=== PATIENT | female | born 1935 | race Caucasian/White ===

== ENCOUNTER 2017-05-12 00:57 | Outpatient (CLI) | payer MEDICARE | END 2017-05-12 23:59 | disposition home or self-care (01) | LOC: DIABETIC 00:57 | PROVIDERS: ATTEND Specialist | DX: E11.65 Type 2 diabetes mellitus with hyperglycemia (principal) | CPT/HCPCS: G0108 ==

== ENCOUNTER 2017-05-27 04:23 | Outpatient (CLI) | payer MEDICARE | END 2017-05-27 23:59 | disposition home or self-care (01) | LOC: DIABETIC 04:23 | PROVIDERS: ATTEND Specialist | DX: E11.65 Type 2 diabetes mellitus with hyperglycemia (principal) | CPT/HCPCS: G0109 ==

== ENCOUNTER 2019-01-15 11:28 | Emergency (ER) | payer MEDICARE ==
[~2019-01-15] VITALS: Ht 162.6 cm; Wt 72.3 kg
[2019-01-15 12:27] LABS: BASOPHILS # (AUTO) 0.1 X10'3 (0-0.2); BASOPHILS % (AUTO) 1.3 % (0-1); EOSINOPHILS # (AUTO) 1.1 X10'3 (0-0.9); EOSINOPHILS % (AUTO) 12.4 % (0-6); HEMATOCRIT 39.4 % (35.0-45.0); HEMOGLOBIN 13.4 g/dl (12.0-16.0); LYMPHOCYTES # (AUTO) 2.2 X10'3 (1.1-4.8); LYMPHOCYTES % (AUTO) 24.8 % (21-51); MEAN CORPUSCULAR HEMOGLOBIN 30.2 PG (27.0-31.0); MEAN CORPUSCULAR HGB CONC 34.1 g/dL (33.0-36.5); MEAN CORPUSCULAR VOLUME 88.5 FL (78-98); MEAN PLATELET VOLUME 7.8 FL (7.4-10.4); MONOCYTES # (AUTO) 0.7 X10'3 (0-0.9); MONOCYTES % (AUTO) 7.8 % (2-12); NEUTROPHILS # (AUTO) 4.9 X10'3 (1.8-7.7); NEUTROPHILS % (AUTO) 53.7 % (42-75); PLATELET COUNT 377 X10'3 (140-440); RED BLOOD COUNT 4.46 X10'6 (4.20-5.60); RED CELL DISTRIBUTION WIDTH 13.9 % (11.5-14.5)
[2019-01-15] MEDS ORDERED: CefTRIAXone 1000mg IM Kit (w/lidocaine diluent) IM ONE (12:30)
[2019-01-15] MEDS ORDERED: TETanus/Pertussis (Acell)/Diphther VAC/PF (Tdap-Adult) 0.5ml syringe IM ONE (12:30)
[2019-01-15 12:39] LABS: PARTIAL THROMBOPLASTIN TIME 30 SECONDS (22-32)
[2019-01-15 12:43] LABS: ALANINE AMINOTRANSFERASE 18 U/L (12-78); ALBUMIN 4.3 G/DL (3.4-5.0); ALKALINE PHOSPHATASE 58 IU/L (46-116); ANION GAP 10 (8-16); ASPARTATE AMINO TRANSFERASE 14 U/L (10-37); BILIRUBIN,TOTAL 0.3 MG/DL (0.1-1.0); BLOOD UREA NITROGEN 29 MG/DL (7-18); BUN/CREATININE RATIO 22.5 (6.6-38.0); CHLORIDE 101 MMOL/L (99-107); CREATININE 1.29 MG/DL (0.40-0.90); GLUCOSE 110 MG/DL (70-104); POTASSIUM 4.7 MMOL/L (3.5-5.1); SODIUM 139 MMOL/L (135-145); TOTAL CARBON DIOXIDE 28.1 MMOL/L (24-32); TOTAL PROTEIN 8.6 G/DL (6.4-8.2); eGFR 39 ML/MIN
[2019-01-15] MEDS ORDERED: CEPH-572 PO (14:19)
[2019-01-15] MEDS ORDERED: SULF1TAB49 PO (14:19)
[2019-01-15 14:41] VITALS: BP 134/70
[2019-01-16] MEDS ORDERED: SULF1TAB49 PO (22:41)
[2019-01-16] MEDS ORDERED: CEPH-572 PO (22:41)
[2019-01-16] MEDS ORDERED: METF500T PO (22:53)
[2019-01-16] MEDS ORDERED: FLUO20CA39 PO (22:53)
[2019-01-16] MEDS ORDERED: FLUT1DIS4 INH (22:53)
[2019-01-16] MEDS ORDERED: HYDR25TA4 PO (22:53)
[2019-01-16] MEDS ORDERED: POTA8CAP20 PO (22:53)
[2019-01-16] MEDS ORDERED: LEVO112T39 PO (22:53)
[2019-01-16] MEDS ORDERED: FENO134C PO (22:53)
[2019-01-16] MEDS ORDERED: LOSA50TA3 PO (22:53)
== END 2019-01-15 14:44 | disposition home or self-care (01) ==
LOC: ER 11:28
DX: E11.621 Type 2 diabetes mellitus with foot ulcer (principal); L03.115 Cellulitis of right lower limb; F03.90 Unspecified dementia, unspecified severity, without behavioral disturbance, psychotic disturbance, mood disturbance, and anxiety; R79.1 Abnormal coagulation profile
CPT/HCPCS: 36415; 73660; 80053; 84145; 85025; 85610; 85651; 85730; 90471; 90715; 96372; 99284; J0696

== ENCOUNTER 2019-01-16 19:22 | Inpatient (IN) | payer MEDICARE ==
[~2019-01-16] VITALS: Ht 162.6 cm; Wt 64.0 kg
[~2019-01-16 19:22] MED LIST: CEPH-572 PO; SULF1TAB49 PO
[2019-01-16] MEDS ORDERED: piperacillin/tazo 3.375gm/50ml 50 ML IV ONE (21:10)
[2019-01-16 21:45] LABS: BASOPHILS # (AUTO) 0.1 X10'3 (0-0.2); BASOPHILS % (AUTO) 1.1 % (0-1); EOSINOPHILS # (AUTO) 0.9 X10'3 (0-0.9); EOSINOPHILS % (AUTO) 10.7 % (0-6); HEMOGLOBIN 12.8 g/dl (12.0-16.0); LYMPHOCYTES # (AUTO) 2.3 X10'3 (1.1-4.8); LYMPHOCYTES % (AUTO) 27.4 % (21-51); MEAN CORPUSCULAR HEMOGLOBIN 29.9 PG (27.0-31.0); MEAN CORPUSCULAR HGB CONC 33.8 g/dL (33.0-36.5); MEAN CORPUSCULAR VOLUME 88.5 FL (78-98); MEAN PLATELET VOLUME 7.5 FL (7.4-10.4); MONOCYTES # (AUTO) 0.7 X10'3 (0-0.9); MONOCYTES % (AUTO) 7.7 % (2-12); NEUTROPHILS # (AUTO) 4.5 X10'3 (1.8-7.7); NEUTROPHILS % (AUTO) 53.1 % (42-75); PLATELET COUNT 368 X10'3 (140-440); RED BLOOD COUNT 4.29 X10'6 (4.20-5.60); RED CELL DISTRIBUTION WIDTH 14.2 % (11.5-14.5); WHITE BLOOD COUNT 8.5 X10'3 (4.5-11.0)
[2019-01-16 21:56] LABS: PARTIAL THROMBOPLASTIN TIME 29 SECONDS (22-32)
[2019-01-16 22:10] LABS: ALANINE AMINOTRANSFERASE 20 U/L (12-78); ALBUMIN 3.9 G/DL (3.4-5.0); ALKALINE PHOSPHATASE 51 IU/L (46-116); ANION GAP 12 (8-16); ASPARTATE AMINO TRANSFERASE 16 U/L (10-37); BILIRUBIN,TOTAL 0.2 MG/DL (0.1-1.0); BLOOD UREA NITROGEN 33 MG/DL (7-18); CALCIUM 9.9 MG/DL (8.5-10.1); CHLORIDE 103 MMOL/L (99-107); CREATININE 1.57 MG/DL (0.40-0.90); GLUCOSE 107 MG/DL (70-104); MAGNESIUM 1.8 MG/DL (1.5-2.4); POTASSIUM 4.3 MMOL/L (3.5-5.1); SODIUM 138 MMOL/L (135-145); TOTAL CARBON DIOXIDE 22.9 MMOL/L (24-32); eGFR 31 ML/MIN
[2019-01-16] MEDS ORDERED: SULF1TAB49 PO (22:41)
[2019-01-16] MEDS ORDERED: CEPH-572 PO (22:41)
[2019-01-16 22:52] LABS: CLARITY,URINE CLEAR (Clear); COLOR,URINE YELLOW (Yellow); GLUCOSE, URINE NEGATIVE (Neg); KETONES,URINE NEGATIVE (Neg); LEUKOCYTE ESTERASE ,URINE NEGATIVE (Neg); NITRITES, URINE NEGATIVE (Neg); OCCULT BLOOD,URINE NEGATIVE (Neg); PH,URINE 6.5 (4.8-8.0); PROTEIN,URINE NEGATIVE (Neg); UROBILINOGEN,URINE 0.2 E.U/dL (0.2-1.0)
[2019-01-16] MEDS ORDERED: LOSA50TA3 PO (22:53)
[2019-01-16] MEDS ORDERED: POTA8CAP20 PO (22:53)
[2019-01-16] MEDS ORDERED: FLUT1DIS4 INH (22:53)
[2019-01-16] MEDS ORDERED: FENO134C PO (22:53)
[2019-01-16] MEDS ORDERED: METF500T PO (22:53)
[2019-01-16] MEDS ORDERED: HYDR25TA4 PO (22:53)
[2019-01-16] MEDS ORDERED: LEVO112T39 PO (22:53)
[2019-01-16] MEDS ORDERED: FLUO20CA39 PO (22:53)
[2019-01-16 22:58] LABS: UA COLLECTION TYPE CLN CATCH MIDSTREAM
--- NOTE | 2019-01-16 23:20 | NUR ---
VASCULAR CALLED BACK, ON WAY IN
--- NOTE | 2019-01-17 00:12 | NUR ---
VASCULAR STUDY UNDERWAY
[2019-01-17] MEDS ORDERED: HYDROcodone/acetaminophen 10/325mg tab PO PRN (00:45)
[2019-01-17] MEDS ORDERED: mag hydrox/Alum hydrox/simeth 30ml oral suspension PO PRN (00:45)
[2019-01-17] MEDS ORDERED: acetaminophen 325mg tablet PO PRN (00:45)
[2019-01-17] MEDS ORDERED: ondansetron/PF 4mg/2ml inj IV PRN (00:45)
[2019-01-17] MEDS ORDERED: HYDROcodone/acetaminophen 5mg/325mg tablet PO PRN (00:45)
[2019-01-17] MEDS ORDERED: magnesium hydroxide 30ml (MOM) UD suspension PO PRN (00:45)
[2019-01-17] MEDS ORDERED: dextrose 50%-water 50ml dispensing syringe IV PRN ×2 (00:50)
[2019-01-17] MEDS ORDERED: glucagon, human recombinant 1mg kit SUBCUT PRN (00:50)
[2019-01-17] MEDS ORDERED: non-formulary drug (Fluticasone/Salmeterol (Advair 250-50 Diskus) 1 PUFFS) INH PRN (00:50)
[2019-01-17] MEDS ORDERED: insulin Lispro (HumaLOG) vial - multi-dose SQ SCH (00:50)
[2019-01-17] MEDS ORDERED: MESSAGE TO PHARMACY PO ONE (00:50)
[2019-01-17] MEDS ORDERED: dextrose ORAL solution 15 GM/59 ML bottle PO PRN ×2 (00:50)
[2019-01-17] MEDS: normal saline 1000ml 1,000 ML IV SCH (01:41)
[2019-01-17] MEDS: vancomycin/NS 1 GM ADD-VANTAGE 250 ML IV SCH (01:41)
--- NOTE | 2019-01-17 03:24 | NUR ---
assisted pt to bsc; unsteady on her feet.
--- NOTE | 2019-01-17 04:29 | NUR ---
ASSISTED PT TO BSC, THEN PLACED ON HOSPITAL BED.
[2019-01-17] MEDS: heparin, porcine 5000 units/ml vial SQ SCH ×2 (07:22→20:00)
[2019-01-17] MEDS: lactobacillus rhamnosus 10,000 MMU CELLS/CAPSULE PO SCH ×2 (07:22→21:41)
[2019-01-17] MEDS: FLUoxetine 20mg capsule PO SCH (07:22)
[2019-01-17] MEDS: levoTHYROXINE 112mcg tablet PO SCH (07:22)
[2019-01-17 08:00] VITALS: BP 135/67
[2019-01-17] MEDS: piperacillin/tazo 3.375gm/50ml 50 ML IV SCH ×2 (08:17→16:04)
[2019-01-17 10:00] VITALS: BP 141/61
[2019-01-17] MEDS ORDERED: ringers solution, lacted 1,000 ML IV ONE (15:10)
[2019-01-17 18:00] VITALS: BP 127/63
--- NOTE | 2019-01-17 18:40 | NUR ---
Problems reprioritized. Patient report given, questions answered & plan of care reviewed with JUSTINO Juarez.
[2019-01-17] MEDS: insulin glargine (Lantus) pen - multi-dose SQ SCH (21:00)
[2019-01-17] MEDS ORDERED: magnesium 4gm in 100ml NS 100 ML IV PRN (21:45)
[2019-01-17] MEDS ORDERED: potassium Cl 20 mEq SR tablet PO PRN ×2 (21:45)
[2019-01-17] MEDS ORDERED: potassium CL 10mEq/100ml bag 100 ML IV PRN (21:45)
[2019-01-17] MEDS ORDERED: magnesium Cl slow-release 64mg tablet PO PRN (21:45)
[2019-01-17 22:00] VITALS: BP 106/43
[2019-01-18] VITALS (15 sets, daily range): BP systolic 116–132; BP diastolic 45–83
[2019-01-18] MEDS: piperacillin/tazo 3.375gm/50ml 50 ML IV SCH ×4 (00:58→23:28)
[2019-01-18] MEDS: vancomycin/NS 1 GM ADD-VANTAGE 250 ML IV SCH (03:31)
[2019-01-18] MEDS ORDERED: famotidine 20mg tablet PO ONE (06:00)
[2019-01-18 06:16] LABS: BASOPHILS # (AUTO) 0.1 X10'3 (0-0.2); BASOPHILS % (AUTO) 0.8 % (0-1); EOSINOPHILS # (AUTO) 0.6 X10'3 (0-0.9); EOSINOPHILS % (AUTO) 8.7 % (0-6); HEMATOCRIT 37.2 % (35.0-45.0); HEMOGLOBIN 12.7 g/dl (12.0-16.0); LYMPHOCYTES # (AUTO) 2.2 X10'3 (1.1-4.8); LYMPHOCYTES % (AUTO) 31.2 % (21-51); MEAN CORPUSCULAR HGB CONC 34.2 g/dL (33.0-36.5); MEAN CORPUSCULAR VOLUME 87.7 FL (78-98); MEAN PLATELET VOLUME 7.6 FL (7.4-10.4); MONOCYTES # (AUTO) 0.7 X10'3 (0-0.9); MONOCYTES % (AUTO) 9.5 % (2-12); NEUTROPHILS # (AUTO) 3.5 X10'3 (1.8-7.7); NEUTROPHILS % (AUTO) 49.8 % (42-75); PLATELET COUNT 345 X10'3 (140-440); RED BLOOD COUNT 4.24 X10'6 (4.20-5.60); RED CELL DISTRIBUTION WIDTH 13.9 % (11.5-14.5)
[2019-01-18] MEDS ORDERED: BUPIVAcaine/PF 2.5 mg/ml (0.25%) 30ml vial ONE (06:16)
--- NOTE | 2019-01-18 06:24 | NUR ---
REPORT GIVEN TO JUSTINO TEIXEIRA.
[2019-01-18 06:32] LABS: ALANINE AMINOTRANSFERASE 19 U/L (12-78); ALBUMIN 3.6 G/DL (3.4-5.0); ALBUMIN/GLOBULIN RATIO 0.9 (1.1-1.5); ALKALINE PHOSPHATASE 41 IU/L (46-116); ANION GAP 13 (8-16); ASPARTATE AMINO TRANSFERASE 15 U/L (10-37); BILIRUBIN,TOTAL 0.4 MG/DL (0.1-1.0); BLOOD UREA NITROGEN 26 MG/DL (7-18); CALCIUM 8.4 MG/DL (8.5-10.1); CHLORIDE 103 MMOL/L (99-107); CHOL/HDL RATIO 4.8 (0.00-4.99); CHOLESTEROL 181 MG/DL (0-200); CREATININE 1.53 MG/DL (0.40-0.90); GLUCOSE 113 MG/DL (70-104); HDL CHOLESTEROL 38 MG/DL (35-60); LDL CHOLESTEROL 116 MG/DL (50-100); MAGNESIUM 1.6 MG/DL (1.5-2.4); PHOSPHORUS 3.2 MG/DL (2.3-4.5); POTASSIUM 3.4 MMOL/L (3.5-5.1); SODIUM 138 MMOL/L (135-145); TOTAL CARBON DIOXIDE 22.5 MMOL/L (24-32); TOTAL PROTEIN 7.4 G/DL (6.4-8.2); TRIGLYCERIDES 170 MG/DL (20-135); eGFR 32 ML/MIN
[2019-01-18] MEDS ORDERED: BUPIVAcaine 0.5% inj/PF 30 ML ONE (06:51)
[2019-01-18] MEDS ORDERED: midazolam 2 mg/2 ml injection ONE (06:52)
[2019-01-18] MEDS ORDERED: fentaNYL/PF 50MCG/1 ML 2ML syringe ONE (06:52)
[2019-01-18] MEDS ORDERED: ringers solution, lacted 1,000 ML IV SCH (07:19)
[2019-01-18] MEDS ORDERED: ondansetron/PF 4mg/2ml inj IV PRN (07:20)
[2019-01-18] MEDS ORDERED: proCHLORperazine 10 MG/2 ml inj IV PRN (07:20)
[2019-01-18] MEDS ORDERED: meperidine/PF 25mg/ml syringe IV PRN ×3 (07:20)
[2019-01-18] MEDS ORDERED: morphine 4 MG/ML inj SYRINge IV PRN ×2 (07:20)
--- NOTE | 2019-01-18 07:24 | NUR ---
Received from OR via , accompanied by Anesthesiologist TRIP and report given by Anesthesiolgist. AWAKE IN NO RESP DISTRESS SKIN WARM AND DRY HOB AND FOB ELEVATED, NO CO PAIN, DSG DI, RT FOOT WARM PINK GOOD CAP REFILL. SCD ON NON OP LEG.
--- NOTE | 2019-01-18 07:57 | NUR ---
Received report from Kelsey BADILLO from recovery. Called patients sonEdward to let him know everything went well.
--- NOTE | 2019-01-18 08:04 | NUR ---
Report called to receiving nurse. Transferred via BED Belongings . Special Issues communicated to receiving nurse.AWAKE VS WNL, NO CO PAIN, DSG DI, FOOT WARM PINK GOOD CAP REFILL, SCD NON OP LEG, TO ROOM
[2019-01-18] MEDS: FLUoxetine 20mg capsule PO SCH (09:02)
[2019-01-18] MEDS: levoTHYROXINE 112mcg tablet PO SCH (09:02)
[2019-01-18] MEDS: lactobacillus rhamnosus 10,000 MMU CELLS/CAPSULE PO SCH ×2 (09:08→20:29)
[2019-01-18] MEDS: heparin, porcine 5000 units/ml vial SQ SCH ×2 (09:09→20:29)
--- NOTE | 2019-01-18 18:21 | NUR ---
Problems reprioritized. Patient report given, questions answered & plan of care reviewed with Ann BADILLO.
[2019-01-18] MEDS: insulin glargine (Lantus) pen - multi-dose SQ SCH (21:00)
[2019-01-18] MEDS: normal saline 1000ml 1,000 ML IV SCH (23:28)
[2019-01-19 02:00] VITALS: BP 134/64
[2019-01-19] MEDS: vancomycin/NS 1 GM ADD-VANTAGE 250 ML IV SCH (02:04)
[2019-01-19 06:00] VITALS: BP 102/54
--- NOTE | 2019-01-19 06:25 | NUR ---
Patient in room ORTHO 4010. I have received report from Ann/Radha and had the opportunity to ask questions and assume patient care.
[2019-01-19 06:59] LABS: BASOPHILS # (AUTO) 0.1 X10'3 (0-0.2); BASOPHILS % (AUTO) 1.2 % (0-1); EOSINOPHILS # (AUTO) 0.8 X10'3 (0-0.9); EOSINOPHILS % (AUTO) 10.9 % (0-6); HEMATOCRIT 36.6 % (35.0-45.0); HEMOGLOBIN 12.3 g/dl (12.0-16.0); LYMPHOCYTES # (AUTO) 2.5 X10'3 (1.1-4.8); LYMPHOCYTES % (AUTO) 34.5 % (21-51); MEAN CORPUSCULAR HEMOGLOBIN 29.8 PG (27.0-31.0); MEAN CORPUSCULAR HGB CONC 33.6 g/dL (33.0-36.5); MEAN CORPUSCULAR VOLUME 88.8 FL (78-98); MEAN PLATELET VOLUME 7.8 FL (7.4-10.4); MONOCYTES # (AUTO) 0.6 X10'3 (0-0.9); MONOCYTES % (AUTO) 8.3 % (2-12); NEUTROPHILS # (AUTO) 3.2 X10'3 (1.8-7.7); NEUTROPHILS % (AUTO) 45.1 % (42-75); PLATELET COUNT 348 X10'3 (140-440); RED BLOOD COUNT 4.12 X10'6 (4.20-5.60); RED CELL DISTRIBUTION WIDTH 13.8 % (11.5-14.5); WHITE BLOOD COUNT 7.1 X10'3 (4.5-11.0)
[2019-01-19 07:33] LABS: ALANINE AMINOTRANSFERASE 18 U/L (12-78); ALBUMIN 3.4 G/DL (3.4-5.0); ALBUMIN/GLOBULIN RATIO 0.9 (1.1-1.5); ALKALINE PHOSPHATASE 41 IU/L (46-116); ANION GAP 11 (8-16); ASPARTATE AMINO TRANSFERASE 16 U/L (10-37); BILIRUBIN,TOTAL 0.3 MG/DL (0.1-1.0); BLOOD UREA NITROGEN 20 MG/DL (7-18); CALCIUM 8.6 MG/DL (8.5-10.1); CHLORIDE 101 MMOL/L (99-107); CREATININE 1.33 MG/DL (0.40-0.90); GLUCOSE 109 MG/DL (70-104); MAGNESIUM 1.8 MG/DL (1.5-2.4); PHOSPHORUS 3.3 MG/DL (2.3-4.5); POTASSIUM 3.5 MMOL/L (3.5-5.1); SODIUM 137 MMOL/L (135-145); TOTAL CARBON DIOXIDE 25.2 MMOL/L (24-32); TOTAL PROTEIN 7.2 G/DL (6.4-8.2); eGFR 38 ML/MIN
[2019-01-19] MEDS: FLUoxetine 20mg capsule PO SCH (07:37)
[2019-01-19] MEDS: lactobacillus rhamnosus 10,000 MMU CELLS/CAPSULE PO SCH ×2 (07:37→21:11)
[2019-01-19] MEDS: levoTHYROXINE 112mcg tablet PO SCH (07:37)
[2019-01-19] MEDS: heparin, porcine 5000 units/ml vial SQ SCH ×2 (07:40→21:12)
[2019-01-19] MEDS: piperacillin/tazo 3.375gm/50ml 50 ML IV SCH ×2 (07:41→17:22)
[2019-01-19 10:00] VITALS: BP 138/60
--- NOTE | 2019-01-19 11:23 | NUR ---
Student documentation: I have reviewed all interventions, assessments performed and [facility] Medication Administration: For this medication-pass time frame, all medication were reviewed, dispensed, administered and documented per hospital policy [facility].
[2019-01-19 14:00] VITALS: BP 128/53
[2019-01-19 18:00] VITALS: BP 125/71
--- NOTE | 2019-01-19 18:21 | NUR ---
Problems reprioritized. Patient report given, questions answered & plan of care reviewed with Ann.
[2019-01-19] MEDS: insulin glargine (Lantus) pen - multi-dose SQ SCH (21:00)
[2019-01-19 22:00] VITALS: BP 148/64
[2019-01-20] MEDS: piperacillin/tazo 3.375gm/50ml 50 ML IV SCH ×2 (00:07→07:45)
[2019-01-20] MEDS ORDERED: VANCOMYCIN LEVEL IV ONE (01:30)
[2019-01-20] MEDS: vancomycin/NS 1 GM ADD-VANTAGE 250 ML IV SCH (01:50)
[2019-01-20 02:01] LABS: ALANINE AMINOTRANSFERASE 17 U/L (12-78); ALBUMIN 3.4 G/DL (3.4-5.0); ALBUMIN/GLOBULIN RATIO 0.9 (1.1-1.5); ALKALINE PHOSPHATASE 42 IU/L (46-116); ANION GAP 10 (8-16); ASPARTATE AMINO TRANSFERASE 15 U/L (10-37); BILIRUBIN,TOTAL 0.3 MG/DL (0.1-1.0); BLOOD UREA NITROGEN 19 MG/DL (7-18); BUN/CREATININE RATIO 16.4 (6.6-38.0); CALCIUM 8.5 MG/DL (8.5-10.1); CHLORIDE 104 MMOL/L (99-107); CREATININE 1.16 MG/DL (0.40-0.90); GLUCOSE 107 MG/DL (70-104); POTASSIUM 3.7 MMOL/L (3.5-5.1); SODIUM 141 MMOL/L (135-145); TOTAL CARBON DIOXIDE 27.1 MMOL/L (24-32); eGFR 45 ML/MIN
[2019-01-20 02:02] LABS: MAGNESIUM 1.8 MG/DL (1.5-2.4); PHOSPHORUS 3.3 MG/DL (2.3-4.5); VANCOMYCIN,TROUGH 9.1 UG/ML (6.0-14.0)
[2019-01-20 06:00] VITALS: BP 138/51
--- NOTE | 2019-01-20 06:05 | NUR ---
Patient in room ORTHO 4010. I have received report from RAGHAV BADILLO and had the opportunity to ask questions and assume patient care.
--- NOTE | 2019-01-20 06:16 | NUR ---
REPORT GIVEN TO JUSTINO MEDRANO.
[2019-01-20 07:23] LABS: BASOPHILS # (AUTO) 0.1 X10'3 (0-0.2); BASOPHILS % (AUTO) 0.9 % (0-1); EOSINOPHILS % (AUTO) 11.7 % (0-6); HEMATOCRIT 39.6 % (35.0-45.0); HEMOGLOBIN 13.5 g/dl (12.0-16.0); LYMPHOCYTES % (AUTO) 34.3 % (21-51); MEAN CORPUSCULAR HEMOGLOBIN 29.9 PG (27.0-31.0); MEAN CORPUSCULAR VOLUME 87.9 FL (78-98); MEAN PLATELET VOLUME 7.8 FL (7.4-10.4); MONOCYTES # (AUTO) 0.7 X10'3 (0-0.9); NEUTROPHILS # (AUTO) 3.9 X10'3 (1.8-7.7); NEUTROPHILS % (AUTO) 45.1 % (42-75); PLATELET COUNT 359 X10'3 (140-440); RED BLOOD COUNT 4.51 X10'6 (4.20-5.60); RED CELL DISTRIBUTION WIDTH 13.9 % (11.5-14.5); WHITE BLOOD COUNT 8.6 X10'3 (4.5-11.0)
[2019-01-20] MEDS: lactobacillus rhamnosus 10,000 MMU CELLS/CAPSULE PO SCH (07:45)
[2019-01-20] MEDS: FLUoxetine 20mg capsule PO SCH (07:45)
[2019-01-20] MEDS: levoTHYROXINE 112mcg tablet PO SCH (07:46)
[2019-01-20] MEDS: heparin, porcine 5000 units/ml vial SQ SCH (07:47)
[2019-01-20 10:00] VITALS: BP 126/52
--- NOTE | 2019-01-20 15:00 | NUR ---
REPORT CALLED TO , ALL BELONGINGS IN POSSESSION WITH THE [facility]ERSON[facility]. SON NOTIFIED OF PATIENT DISCHARGED.
--- NOTE | 2019-01-20 16:00 | NUR ---
Student documentation: I have reviewed and agree with all interventions, assessments performed and documented by OLESYA LINDQUIST.
--- NOTE | 2019-01-20 16:00 | NUR ---
Student Medication Administration: For this medication-pass time frame, all medication were reviewed, dispensed, administered and documented per hospital policy by OLESYA LINDQUIST.
[2019-01-24] MEDS ORDERED: VANCOMYCIN LEVEL IV ONE (01:30)
== END 2019-01-20 16:10 | DRG 617 ==
LOC: ER 19:23 → ED HOLD 01-17 00:43 → ORTHO 4S 01-17 08:00
PROVIDERS: ADMIT Internal Medicine; ATTEND Family Medicine
PROC: 3E0T3BZ Introduction of Anesthetic Agent into Peripheral Nerves and Plexi, Percutaneous Approach (ICD-10-PCS; 2019-01-18)
PROC: 0Y6R0Z0 Detachment at Right 2nd Toe, Complete, Open Approach (ICD-10-PCS; principal; 2019-01-18 06:45)
DX: E11.69 Type 2 diabetes mellitus with other specified complication (principal); E11.52 Type 2 diabetes mellitus with diabetic peripheral angiopathy with gangrene; M86.8X7 Other osteomyelitis, ankle and foot; E11.40 Type 2 diabetes mellitus with diabetic neuropathy, unspecified; F03.90 Unspecified dementia, unspecified severity, without behavioral disturbance, psychotic disturbance, mood disturbance, and anxiety; E11.621 Type 2 diabetes mellitus with foot ulcer; L97.519 Non-pressure chronic ulcer of other part of right foot with unspecified severity; I25.10 Atherosclerotic heart disease of native coronary artery without angina pectoris; J44.9 Chronic obstructive pulmonary disease, unspecified; Z95.1 Presence of aortocoronary bypass graft; Z79.899 Other long term (current) drug therapy
CPT/HCPCS: 36415; 71045; 73660; 80053; 80061; 80202; 81003; 82948; 83036; 83605; 83735; 84100; 84145; 84443; 85025; 85610; 85651; 85730; 87040; 87081; 88305; 88311; 90471; 93306; 93922; 93925; 96365; 96372; 97110; 97116; 97161; 97530; 99284; 99285; A4615; A6222; A6446; A6449; G0378; J0696; J1644; J1815; J2250; J2543; J3010; J3370; J3490; J7030; J7120